=== PATIENT | female | born 1985 | race African-American/Black ===

== ENCOUNTER 2020-10-15 15:33 | Emergency (ER) | payer SELFPAY ==
[2020-10-15] MEDS ORDERED: Ketorolac Tromethamine 30 MG/ML VIAL ONE (16:05)
== END 2020-10-15 16:35 | disposition home or self-care (01) ==
LOC: ERS 15:33
DX: K03.81 Cracked tooth (principal); K02.9 Dental caries, unspecified; R51.9 Headache, unspecified; L02.91 Cutaneous abscess, unspecified; F17.200 Nicotine dependence, unspecified, uncomplicated
CPT/HCPCS: 96372; 99282; J1885